=== PATIENT | female | born 1985 | race Caucasian/White ===

== ENCOUNTER → 2017-02-07 | Outpatient (CLI) | payer BC ==
[~2017-02-07] MED LIST: AMOX500C3 PO; CETI10TA10 PO; CIPR1TAB11 PO; LEVO200T PO; LEVO25TA PO; METF1000 PO; PRENTAB26 PO
[2017-02-07 13:16] LABS: THYROID STIMULATING HORMONE 0.058 uIu/ml (0.300-4.500)
== END | disposition home or self-care (01) ==
LOC: C.LABPVFM 10:48
PROVIDERS: ATTEND Nurse Practitioner
DX: E03.9 Hypothyroidism, unspecified (principal)

== ENCOUNTER → 2017-03-08 | Outpatient (CLI) | payer BC ==
[2017-03-08 13:07] LABS: ESTIMATED AVERAGE GLUCOSE 166 mg/dl; HA1C FLAG Normal (Normal)
== END | disposition home or self-care (01) ==
LOC: C.LABPVFM 07:22
PROVIDERS: ATTEND Nurse Practitioner
DX: E11.9 Type 2 diabetes mellitus without complications (principal); E03.9 Hypothyroidism, unspecified

== ENCOUNTER → 2017-04-29 | Outpatient (CLI) | payer BC ==
[2017-04-29 12:53] LABS: ALT/SGPT 42 U/L (12-78); BLOOD UREA NITROGEN 8 mg/dl (7-18); BUN/CREATININE RATIO 15.8 (10-20); CALCIUM 9.3 mg/dl (8.5-10.1); CARBON DIOXIDE 24 mmol/L (21-32); CHLORIDE 106 mmol/L (98-107); CHOLESTEROL 102 mg/dl (0-200); CREATININE 0.52 mg/dl (0.60-1.20); GLUCOSE 154 mg/dl (70-99); POTASSIUM 3.8 mmol/L (3.5-5.1); SODIUM 139 mmol/L (136-145)
[2017-04-29 13:00] LABS: RATIO 10.9 mcg/mg (0-30.0)
[2017-04-29 13:04] LABS: ALKALINE PHOSPHATASE 56 U/L (45-117); AST/SGOT 23 U/L (15-37); CHOLESTEROL/HDL RATIO 3.4; HDL CHOLESTEROL 30 mg/dl; LDL CHOLESTEROL CALCULATED 66 mg/dl; THYROID STIMULATING HORMONE 0.036 uIu/ml (0.300-4.500); TRIGLYCERIDES 30 mg/dl (0-150); VERY LOW DENSITY LIPOPROT CALC 6 mg/dl
== END | disposition home or self-care (01) ==
LOC: C.LABPVFM 08:25
PROVIDERS: ATTEND Internal Medicine Endocrinology, Diabetes & Metabolism
DX: E03.9 Hypothyroidism, unspecified (principal); E11.9 Type 2 diabetes mellitus without complications; E06.3 Autoimmune thyroiditis; E66.9 Obesity, unspecified

== ENCOUNTER → 2017-09-27 | Outpatient (CLI) | payer BC ==
--- NOTE | 2017-09-27 15:40 | DIAGNOSTIC IMAGING REPORT ---
PA CHEST WITH ABDOMINAL SERIES CLINICAL HISTORY: Generalized abdominal pain. FINDINGS: A PA chest radiograph is compared to chest x-ray and chest CT dated 01/26/2015. The examination is degraded by patient rotation. The cardiomediastinal silhouette is unremarkable. The lungs and pleural spaces are clear. No pneumothorax is seen. The bony thorax is grossly intact. Supine and erect abdominal radiographs are correlated with abdominal CT dated 05/27/2012. There is a nonobstructed abdominal bowel gas pattern. Moderate fecal retention is noted. No evidence of intraperitoneal free air is seen. There are no abnormal abdominal calcifications. The lumbosacral spine and bony pelvis appear intact. IMPRESSION: 1. No active disease in the chest. 2. Nonobstructed abdominal bowel gas pattern noting moderate constipation. Electronically signed by: Sha Bianchi M.D. 09/27/2017 3:38 PM Dictated Date/Time: 09/27/2017 3:37 PM
[2017-09-27 17:12] LABS: HEMATOCRIT 41.1 % (37-47); HEMOGLOBIN 13.6 g/dL (12.0-16.0); MEAN CELL VOLUME 81.9 fL (80-100); MEAN CORPUSCULAR HEMOGLOBIN 27.1 pg (25-34); MEAN CORPUSCULAR HGB CONC 33.1 g/dl (32-36); MEAN PLATELET VOLUME 9.5 fL (7.4-10.4); PLATELET COUNT 472 K/uL (130-400); RED CELL DISTRIBUTION WIDTH CV 14.7 % (11.5-14.5); RED CELL DISTRIBUTION WIDTH SD 43.6 fL (36.4-46.3); WHITE BLOOD COUNT 8.64 K/uL (4.8-10.8)
[2017-09-27 17:31] LABS: ALT/SGPT 39 U/L (12-78); AST/SGOT 15 U/L (15-37); BLOOD UREA NITROGEN 6 mg/dl (7-18); CALCIUM 9.2 mg/dl (8.5-10.1); CARBON DIOXIDE 26 mmol/L (21-32); CREATININE 0.67 mg/dl (0.60-1.20); GLUCOSE 97 mg/dl (70-99); LIPASE 198 U/L (73-393); POTASSIUM 3.8 mmol/L (3.5-5.1); SODIUM 139 mmol/L (136-145)
[2017-09-27 17:34] LABS: ALKALINE PHOSPHATASE 52 U/L (45-117); TOTAL PROTEIN 8.2 gm/dl (6.4-8.2)
== END | disposition home or self-care (01) ==
LOC: C.LABPVFM 14:52
PROVIDERS: ATTEND Family Medicine
DX: R19.8 Other specified symptoms and signs involving the digestive system and abdomen (principal); E03.9 Hypothyroidism, unspecified; E11.9 Type 2 diabetes mellitus without complications; K59.00 Constipation, unspecified

== ENCOUNTER → 2017-09-30 | Outpatient (CLI) | payer BC | END | disposition home or self-care (01) | LOC: C.LABPVFM 15:00 | PROVIDERS: ATTEND Family Medicine | DX: R39.9 Unspecified symptoms and signs involving the genitourinary system (principal) ==

== ENCOUNTER → 2018-02-08 | Outpatient (CLI) | payer BC ==
[~2018-02-08] MED LIST changes: +CEPH500C2 PO; +CHOL100010 PO; +CYAN10005 PO; +METF-384 PO
== END | disposition home or self-care (01) ==
LOC: C.LABSPEC 15:34
PROVIDERS: ATTEND Obstetrics & Gynecology
DX: Z11.3 Encounter for screening for infections with a predominantly sexual mode of transmission (principal)

== ENCOUNTER → 2018-02-15 | Outpatient (CLI) | payer BC ==
[~2018-02-15] MED LIST changes: -AMOX500C3 PO; -CIPR1TAB11 PO; -LEVO25TA PO; -METF1000 PO; +OPTIRAY 320 IV PRN; -PRENTAB26 PO
--- NOTE | 2018-02-15 16:08 | DIAGNOSTIC IMAGING REPORT ---
FACIAL-MAXILLOFACIAL WITH HISTORY: 33 years-old Female FACIAL SWELLING acute bilateral facial pain and swelling COMPARISON: None available TECHNIQUE: Multiple axial CT images of the maxillofacial bones were obtained following the intravenous administration of 94 mL Optiray 320 IV contrast. A dose lowering technique was used consistent with the principals of KEMAL. FINDINGS: There is mild enlargement and heterogeneity with interstitial edema involving the bilateral parotid glands with mild adjacent subcutaneous edema which tracks along the platysma musculature bilaterally. There are suggested lymph nodes seen within the superficial parotid lobes bilaterally measuring 0.8 x 0.6 cm on the right and 0.7 x 0.8 cm on the left. No parotid ductal dilation or obstructing ductal calculi. The submandibular and sublingual glands appear unremarkable. Prominent level II lymph nodes bilaterally measure up to 9 mm in short axis. Minimal secretions noted within the vallecula. No peritonsillar or retropharyngeal fluid collection. Oral pharynx, nasopharynx and hypopharynx appear patent. The glottis and subglottic airway are within normal limits. Orbits and imaged intracranial structures are unremarkable. Bones appear intact. Trace right mastoid effusion. Left mastoid air cells are clear. Minimal polypoid mucosal thickening about the inferior right maxillary sinus. IMPRESSION: 1. Findings suggest bilateral parotiditis without ductal dilation or obstructing sialolith. 2. Mildly prominent bilateral level II lymph nodes are likely reactive. 3. Trace right mastoid effusion. 4. Mild right maxillary sinus disease. The above report was generated using voice recognition software. It may contain grammatical, syntax or spelling errors. Electronically signed by: Israel Sofia M.D. 02/15/2018 4:07 PM Dictated Date/Time: 02/15/2018 4:00 PM
== END | disposition home or self-care (01) ==
LOC: C.CTS 15:34
PROVIDERS: ATTEND Family Medicine
DX: R22.0 Localized swelling, mass and lump, head (principal)

== ENCOUNTER → 2018-02-21 | Outpatient (CLI) | payer BC ==
[~2018-02-21] MED LIST changes: -OPTIRAY 320 IV PRN
[2018-02-21 13:46] LABS: BLOOD UREA NITROGEN 12 mg/dl (7-18); CALCIUM 8.4 mg/dl (8.5-10.1); CARBON DIOXIDE 25 mmol/L (21-32); CREATININE 0.65 mg/dl (0.60-1.20); GLUCOSE 157 mg/dl (70-99); POTASSIUM 4.1 mmol/L (3.5-5.1); SODIUM 138 mmol/L (136-145)
== END | disposition home or self-care (01) ==
LOC: C.LABPVFM 07:36
PROVIDERS: ATTEND Family Medicine
DX: E11.9 Type 2 diabetes mellitus without complications (principal)